=== PATIENT | female | born 1995 | race Caucasian/White ===

== ENCOUNTER 2018-11-13 05:30 | Inpatient (IN) | payer BC ==
[2018-11-13] MEDS ORDERED: Lidocaine 1% (PF) 30 ML VIAL SC PRN (06:01)
[2018-11-13] MEDS ORDERED: Promethazine HCl 25 MG/ML VIAL IM PRN ×2 (06:01→11:24)
[2018-11-13] MEDS ORDERED: HYDROcodone/Acetaminophen 5/325 mg Tablet PO PRN ×3 (06:01→17:32)
[2018-11-13] MEDS ORDERED: NS w/ Oxytocin 10 units 500 ML IV SCH ×2 (06:01)
[2018-11-13] MEDS ORDERED: Ondansetron PF 4 MG/2 ML Vial IVP PRN ×2 (06:01→11:24)
[2018-11-13] MEDS ORDERED: NS / Oxytocin 40 units/1000ml 1,000 ML IV PRN (06:01)
[2018-11-13] MEDS ORDERED: Ibuprofen 800 MG TAB PO PRN (06:01)
[2018-11-13] MEDS ORDERED: Butorphanol Tartrate 1 MG/ML VIAL SLOW IVP PRN (06:01)
[2018-11-13 06:14] VITALS: BMI 30.7
[2018-11-13] MEDS: Lactated Ringer's 1,000 ML IV SCH ×2 (06:37→11:24)
[2018-11-13 06:51] LABS: Hemoglobin 10.6 g/dL (12.0-16.0); Mean Corpuscular Hemoglobin 24.3 pg (27.0-31.0); Mean Platelet Volume 9.5 fL (7.4-10.4); Platelet Count 221 thou/uL (130-400); RBC Distribution Width 16.9 % (11.5-14.5); Red Blood Cell (RBC) Count 4.35 mill/uL (4.20-5.40); White Blood Cell (WBC) Count 10.8 thou/uL (4.8-10.8)
[2018-11-13 07:23] LABS: HBSAg Index 0.25 S/CO (0-0.99); Hep B Surf Ag Non-Reactive S/CO (NonReactive); Syphilis Antibody Nonreactive (Nonreactive); Syphilis Antibody Index 0.03 S/CO (<1.00 Non-Reactive)
--- NOTE | 2018-11-13 08:21 | PDOC.LDHP ---
Labor and Delivery H&P Chief complaint: scheduled induction HPI: Pt is a 23yo here for IOL @ 40.4 weeks. Current gestational age (weeks): 40 Due date: 11/09/18 Dating criteria: second trimester ultrasound Grav: 3 Para: 1 OB History Details: x 1 Current complications: other (insuff PNC) Abnormal US findings: No Current medications: pre- vitamins Previous surgical history: none Allergies/Adverse Reactions: Allergies Allergy/AdvReac Type Severity Reaction Status Date / Time No Known Allergies Allergy Unverified 11/13/18 06:07 Social history: none - Physical Exam Vital signs reviewed and normal: yes General: NAD Heart: RRR Lungs: CTAB Abdomen: gravid Extremeties: no edema FHT: category 1 - Vaginal Exam cm dilated: 2 Effacement: 25% Station: -2 - OB Labs Blood type: O RH: positive Antibody Screen: negative HIV: negative RPR: negative HEPSAg: negative 1 hour GCT: unknown GBS: negative Rubella: immune - Assessment L&D Assessment: elective induction at term - Plan Plan: admit to L&D, labor augmentation if indicated, informed consent obtained, anesthesia consult for pain management -: A/P: IOL @ 40.4 w favorable cervix. AROM w clear fluid on admit exam, pitocin for IOL.
[2018-11-13] MEDS ORDERED: Fentanyl 4 mcg/Bup 0.1% Cadd 100 ML ONE (10:37)
[2018-11-13] MEDS ORDERED: Lidocaine 1.5%/Epinephrine 1:200,000 5 ML AMPUL IJ ONE (10:37)
[2018-11-13] MEDS ORDERED: Fentanyl 100 MCG/2 ML VIAL ONE (10:52)
[2018-11-13] MEDS ORDERED: Eucerin (Mineral Oil/Petrolatum,White) 30 gm Jar TOP PRN (11:24)
[2018-11-13] MEDS ORDERED: Lactated Ringer's 500 ML IV PRN (11:24)
[2018-11-13] MEDS ORDERED: Naloxone HCl 0.4 mg/ml Vial IVP PRN ×2 (11:24)
[2018-11-13] MEDS ORDERED: diphenhydrAMINE 50 MG/ML VIAL IVP PRN (11:24)
[2018-11-13] MEDS ORDERED: Acetaminophen 325 MG TAB PO PRN (11:24)
[2018-11-13] MEDS ORDERED: ePHEDrine/0.9% NaCl/PF SYRINGE 50 mg/10 ml SLOW IVP PRN (11:24)
[2018-11-13] MEDS ORDERED: Fentanyl 4 mcg/Bupivacaine 0.1% Cassette 100 ML EPIDURAL SCH (11:30)
[2018-11-13] MEDS ORDERED: Communication Order-Pharmacy FS SCH (11:30)
--- NOTE | 2018-11-13 12:46 | PDOC.LDPN ---
Labor & Delivery Progress Note - Subjective Subjective: comfortable - Objective Vital signs reviewed and normal: yes General: resting Dilation: 5 Effacement: 90% Station: 0 FHT: category 1 AROM: clear fluid - Assessment (1) 40 weeks gestation of Code(s): Z3A.40 - 40 WEEKS GESTATION OF Current Visit: Yes Status : Acute Plan: continue plan of care -: A/P: 23yo @ 40+ weeks w transition to active labor. FHT reassuring.
--- NOTE | 2018-11-13 15:32 | PDOC.OPDEL ---
OB Operative/Delivery Note Delivery Dr/Surgeon: Antwon Pre-Delivery Diagnosis: elective induction Procedure/Post Delivery Dx: spontaneous vaginal delivery Weeks gestation: 40 - Findings A Sex: male - 1 min: 8 - 5 min: 9 - Additional Findings/Plan Placenta delivered: spontaneous Repaired Obstetrical Laceration: right labial Estimated blood loss: 300ml Compilations/Other Findings: double nuchal reduced at perineum Post delivery plan: routine recovery
[2018-11-13] MEDS ORDERED: Bisacodyl 10 MG SUPP PR PRN (17:32)
[2018-11-13] MEDS ORDERED: Lanolin Ointment 7 GM TUBE TOP PRN (17:32)
[2018-11-13] MEDS ORDERED: NS / Oxytocin 40 units/1000ml 1,000 ML IV SCH (17:32)
[2018-11-13] MEDS ORDERED: Milk Of Magnesia 30 ML UDCUP PO PRN (17:32)
[2018-11-13] MEDS ORDERED: Ferrous Sulfate 325 MG TAB PO SCH (17:45)
[2018-11-13] MEDS: HYDROcodone/Acetaminophen 5/325 mg Tablet PO PRN (17:56)
[2018-11-13] MEDS ORDERED: Adacel (T-DAP) 0.5 ML SYRINGE IM ONE (21:00)
[2018-11-13] MEDS: Ibuprofen 800 MG TAB PO SCH (21:21)
[2018-11-13] MEDS: Docusate Calcium (SURFAK) 240 MG CAP PO SCH (21:21)
[2018-11-13] MEDS ORDERED: Benzocaine/Menthol 20-0.5% 60 ML CAN TOP PRN (21:39)
[2018-11-14] MEDS: HYDROcodone/Acetaminophen 5/325 mg Tablet PO PRN ×3 (03:19→19:01)
[2018-11-14] MEDS: Ibuprofen 800 MG TAB PO SCH ×3 (05:08→21:45)
[2018-11-14] MEDS: Prenatal Vitamin 1 TAB PO SCH (08:11)
[2018-11-14] MEDS: Docusate Calcium (SURFAK) 240 MG CAP PO SCH ×2 (08:11→21:45)
--- NOTE | 2018-11-14 10:02 | PDOC.PP ---
Post Progress Note Post Day #: 2 Subjective: doing well, had nguyen reinserted for difficulty voiding, high PVR yesterday, min cramping today, min bleeding PO intake tolerated: yes Flatus: yes Ambulation: yes Vital Signs (12 hours) Temp Pulse Resp BP Pulse Ox 11/14/18 08:12 97.9 F 63 20 111/58 L 99 11/14/18 03:30 98.2 F 72 16 105/59 L 11/13/18 23:30 98.3 F 79 16 109/58 L Weight Weight 168 lb - Physical Examination General: NAD Respiratory: non-labored breathing Abdominal: no distention Fundus firm & at: below umb Neurological: no gross focal deficits Psychiatric: A&Ox3, normal affect Result Diagrams: 11/13/18 06:31 Additional Labs: Post Labs Blood Type O POSITIVE 11/13/18 07:09 Hep Bs Antigen Non-Reactive S/CO (NonReactive) 11/13/18 06:31 (1) 40 weeks gestation of Code(s): Z3A.40 - 40 WEEKS GESTATION OF Status: Acute (2) Vaginal delivery Code(s): O80 - ENCOUNTER FOR FULL-TERM UNCOMPLICATED DELIVERY Status: Acute - Assessment/Plan A/P: PPD 1 w urinary retention sp . Nguyen DC this AM, if successful voiding trial will plan to DC today.
[2018-11-14] MEDS: Ferrous Sulfate 325 MG TAB PO SCH ×2 (10:46→19:02)
[2018-11-15] MEDS: Ibuprofen 800 MG TAB PO SCH ×2 (04:50→12:27)
--- NOTE | 2018-11-15 08:03 | PDOC.PP ---
Post Progress Note Post Day #: 2 PO intake tolerated: yes Flatus: yes Ambulation: yes Vital Signs (12 hours) Temp Pulse Resp BP Pulse Ox 11/14/18 21:08 98.6 F 73 16 115/59 L 99 11/14/18 20:20 99 Weight Weight 168 lb - Physical Examination General: NAD Cardiovascular: RRR Respiratory: non-labored breathing Abdominal: no distention, appropriately TTP Fundus firm & at: umb Extremities: negative homans (B) Skin: no rash Neurological: no gross focal deficits Psychiatric: normal affect Result Diagrams: 11/13/18 06:31 Additional Labs: Post Labs Blood Type O POSITIVE 11/13/18 07:09 Hep Bs Antigen Non-Reactive S/CO (NonReactive) 11/13/18 06:31 - Assessment/Plan PPD2 s/p TSVD VSSAF Doing well, voiding normally, lochia < menses Rh pos RImm DC home FU 6w
[2018-11-15] MEDS: Prenatal Vitamin 1 TAB PO SCH (08:09)
[2018-11-15] MEDS: Docusate Calcium (SURFAK) 240 MG CAP PO SCH (08:09)
[2018-11-15] MEDS: HYDROcodone/Acetaminophen 5/325 mg Tablet PO PRN ×2 (08:11→17:12)
[2018-11-15] MEDS: Ferrous Sulfate 325 MG TAB PO SCH ×2 (08:16→16:42)
[2018-11-15 08:23] VITALS: BP 112/62; TEMP 98.5
== END 2018-11-15 20:30 | disposition home or self-care (01) | DRG 807 ==
LOC: L&D 05:46 → 3SW 17:23
PROVIDERS: ADMIT Obstetrics & Gynecology; ATTEND Obstetrics & Gynecology
PROC: 10E0XZZ Delivery of Products of Conception, External Approach (ICD-10-PCS; principal; 2018-11-13)
PROC: 0UQMXZZ Repair Vulva, External Approach (ICD-10-PCS; 2018-11-13)
DX: O48.0 Post-term pregnancy (principal); Z37.0 Single live birth; Z3A.40 40 weeks gestation of pregnancy; O69.81X0 Labor and delivery complicated by cord around neck, without compression, not applicable or unspecified; O70.0 First degree perineal laceration during delivery
CPT/HCPCS: 36415; 51702; 85027; 86780; 86850; 86900; 86901; 87340; J2001; J3010; J3490

== ENCOUNTER 2022-09-29 16:45 | Emergency (ER) | payer BC, SELFPAY ==
[2022-09-29 17:40] LABS: #Eosinphils 0.1 thou/uL (0.0-0.7); #Lymphocytes 0.6 thou/uL (1.20-3.40); #Monocytes 0.5 thou/uL (0.11-0.59); #Neutrophils 9.8 thou/uL (1.40-6.50); %Basophils 0.2 % (0.0-1.0); %Eosinophils 0.5 % (0.0-10.0); %Lymphocytes 5.5 % (21.0-51.0); %Monocytes 4.2 % (0.0-10.0); %Neutrophils 89.6 % (42.0-75.0); Hemoglobin 13.2 g/dL (12.0-16.0); Mean Corpuscular HGB CONC 32.3 g/dL (32.0-36.0); Mean Corpuscular Hemoglobin 27.1 pg (27.0-31.0); Mean Corpuscular Volume 84.1 fl (78.0-98.0); Mean Platelet Volume 7.9 fL (7.4-10.4); Platelet Count 278 10x3/uL (130-400); RBC Distribution Width 12.9 % (11.5-14.5); Red Blood Cell (RBC) Count 4.86 mill/uL (4.20-5.40); White Blood Cell (WBC) Count 10.9 10x3/uL (4.8-10.8)
[2022-09-29 17:48] LABS: BHCG - Serum Negative (NEGATIVE); Pregs Control Background? CLEAR/WHITE (CLR/WHITE); Pregs Control Bar Appear? YES (CONTROL BAR)
[2022-09-29 17:58] LABS: ALT (SGPT) 11 U/L (8-55); AST (SGOT) 14 U/L (5-34); Albumin 4.1 g/dL (3.5-5.0); Alkaline Phosphatase 121 U/L (40-110); Anion Gap 9 mmol/L (10-20); BUN (Urea Nitrogen) 11 mg/dL (7.0-18.7); Bilirubin, Total 0.5 mg/dL (0.2-1.2); Calc. Creatinine Clearance 0 mL/min (70-130); Calcium 8.5 mg/dL (7.8-10.44); Carbon Dioxide 27 mmol/L (22-29); Chloride 106 mmol/L (98-107); Estimated GFR 120; Globulin 2.7 g/dL (2.4-3.5); Glucose 102 mg/dL (70-105); Potassium 4.3 mmol/L (3.5-5.1); Protein, Total 6.8 g/dL (6.0-8.3); Sodium 138 mmol/L (136-145)
[2022-09-29] MEDS ORDERED: Acetaminophen 500 MG TAB ONE (19:45)
== END 2022-09-29 21:00 | disposition home or self-care (01) ==
LOC: ERS 16:45
DX: R55 Syncope and collapse (principal)
CPT/HCPCS: 36415; 71045; 80053; 84703; 85025; 85379; 93005; 96360; 96361

== ENCOUNTER 2025-06-03 10:49 | Emergency (ER) | payer MEDICAID, OTHER, SELFPAY ==
[2025-06-03 12:02] LABS: #Basophils 0.06 10x3/uL (0.0-0.2); #Eosinophils 0.29 10x3/uL (0.0-0.7); #Monocytes 0.49 10x3/uL (0.11-0.59); #Neutrophils 7.18 10x3/uL (1.40-6.50); %Basophils 0.6 % (0.0-1.0); %Eosinophils 3.1 % (0.0-10.0); %Lymphocytes 13.8 % (21.0-51.0); %Monocytes 5.2 % (0.0-10.0); %Neutrophils 76.7 % (42.0-75.0); Hematocrit 42.6 % (36.0-47.0); Hemoglobin 13.1 g/dL (12.0-16.0); Mean Corpuscular Hemoglobin 25.8 pg (27.0-31.0); Mean Corpuscular Volume 84.0 fL (78.0-98.0); Platelet Count 296 10x3/uL (130-400); Red Blood Cell (RBC) Count 5.07 mill/uL (4.20-5.40); White Blood Cell (WBC) Count 9.37 10x3/uL (4.8-10.8)
[2025-06-03 12:13] LABS: Bacteria/HPF None Seen HPF (None Seen); CAUTI Indications for Culture Pelvic or flank pain; Glucose, Urine (Dipstick) Normal (Negative); Leukocyte Negative Leu/uL (Negative); Protein, Urine (Dipstick) Negative (Neg-Trace); Specific Gravity, Urine 1.019 (1.002-1.036); WBC/HPF 0-3 HPF (0-3)
[2025-06-03 12:14] LABS: Urine Culture Reflex No No
[2025-06-03 12:20] LABS: ALT (SGPT) 40 U/L (Less than 34); AST (SGOT) 40 U/L (11-34); Albumin 3.2 g/dL (3.1-4.5); Alkaline Phosphatase 177 U/L (40-110); Anion Gap 12 mmol/L (10-20); BUN (Urea Nitrogen) 15 mg/dL (7.0-18.7); Bilirubin, Total 0.2 mg/dL (0.3-1.2); Calc. Creatinine Clearance 0 mL/min (70-130); Calcium 9.0 mg/dL (7.8-10.44); Carbon Dioxide 24 mmol/L (22-29); Chloride 106 mmol/L (98-107); Globulin 3.3 g/dL (2.4-3.5); Glucose 83 mg/dL (70-105); Lipase 40 U/L (8-78); Potassium 4.4 mmol/L (3.5-5.1); Sodium 138 mmol/L (136-145)
== END 2025-06-03 15:55 | disposition home or self-care (01) ==
LOC: ERS 10:49
DX: R10.21 Pelvic and perineal pain right side (principal); E11.9 Type 2 diabetes mellitus without complications
CPT/HCPCS: 76856; 80053; 81001; 83690; 85025; 93005; 93976